=== PATIENT | female | born 1960 | race Caucasian/White ===

== ENCOUNTER → 2018-06-29 | Outpatient (CLI) | payer MEDICAID | END | disposition home or self-care (01) | LOC: RAD 10:08 | PROVIDERS: ATTEND Family Medicine | DX: M85.872 Other specified disorders of bone density and structure, left ankle and foot (principal); M85.871 Other specified disorders of bone density and structure, right ankle and foot | CPT/HCPCS: 77077 ==

== ENCOUNTER → 2019-08-21 | Outpatient (CLI) | payer MEDICAID | END | disposition home or self-care (01) | LOC: RAD 12:29 | PROVIDERS: ATTEND Internal Medicine Rheumatology | DX: M19.011 Primary osteoarthritis, right shoulder (principal); M25.811 Other specified joint disorders, right shoulder; I70.208 Unspecified atherosclerosis of native arteries of extremities, other extremity; M25.711 Osteophyte, right shoulder ==

== ENCOUNTER → 2019-10-26 | Outpatient (CLI) | payer MEDICAID | END | disposition home or self-care (01) | LOC: RAD 13:28 | PROVIDERS: ATTEND Family Medicine | DX: M19.011 Primary osteoarthritis, right shoulder (principal); G89.29 Other chronic pain ==

== ENCOUNTER 2020-07-24 08:54 | Outpatient (CLI) | payer MEDICAID ==
[2020-07-24] MEDS ORDERED: MIDAZOLAM 1 MG/ML, 5ML ONE ×2 (09:22)
[2020-07-24] MEDS ORDERED: FENTANYL PF 100 MCG/2ML ONE (09:22)
[2020-07-24] MEDS ORDERED: NALOXONE 1 MG/ML, 2ML ONE (09:22)
[2020-07-24] MEDS ORDERED: FLUMAZENIL 0.1 MG/1 ML, 5ML ONE (09:22)
[2020-07-24] MEDS ORDERED: GADOTERATE 7.5 MMOL/15 ML SYR ONE (09:56)
== END 2020-07-24 23:59 | disposition home or self-care (01) ==
LOC: RAD 08:54
PROVIDERS: ATTEND Internal Medicine
DX: C43.62 Malignant melanoma of left upper limb, including shoulder (principal); F17.210 Nicotine dependence, cigarettes, uncomplicated; Z88.5 Allergy status to narcotic agent; M06.9 Rheumatoid arthritis, unspecified; Z79.899 Other long term (current) drug therapy
CPT/HCPCS: 70553; 99156; 99157; A9575; J2250; J3010; J2310

== ENCOUNTER → 2020-11-06 | Outpatient (CLI) | payer MEDICAID ==
[~2020-11-06] MED LIST: OMNIPAQUE 350 MG/ML, 100ML BOTTLE ONE
== END | disposition home or self-care (01) ==
LOC: CFH 10:02
PROVIDERS: ATTEND Internal Medicine
DX: C43.62 Malignant melanoma of left upper limb, including shoulder (principal); K80.20 Calculus of gallbladder without cholecystitis without obstruction; K57.10 Diverticulosis of small intestine without perforation or abscess without bleeding; M51.37 Other intervertebral disc degeneration, lumbosacral region
CPT/HCPCS: 71260; 74177; Q9967

== ENCOUNTER → 2021-05-28 | Outpatient (CLI) | payer MEDICAID | END | disposition home or self-care (01) | LOC: CFH 08:57 | PROVIDERS: ATTEND Internal Medicine | DX: C43.62 Malignant melanoma of left upper limb, including shoulder (principal); K80.20 Calculus of gallbladder without cholecystitis without obstruction; M51.36 Other intervertebral disc degeneration, lumbar region; R91.1 Solitary pulmonary nodule; J98.11 Atelectasis; M43.8X6 Other specified deforming dorsopathies, lumbar region | CPT/HCPCS: 71260; 74177; Q9967 ==

== ENCOUNTER 2021-07-15 05:53 | Day surgery (SDC) | payer MEDICAID ==
[~2021-07-15] VITALS: Ht 165.1 cm; Wt 66.2 kg
[2021-07-15] MEDS ORDERED: GABA600T7 PO (06:44)
[2021-07-15] MEDS ORDERED: ADAL40PE SQ (06:44)
[2021-07-15] MEDS ORDERED: FOLI1TAB32 PO (06:44)
[2021-07-15] MEDS ORDERED: PREDNISOLONE (06:44)
[2021-07-15 07:03] VITALS: BP 137/83
[2021-07-15 07:26] LABS: INTERNATIONAL NORMALIZED RATIO 0.96 (0.93-1.1); PROTHROMBIN TIME 10.3 Seconds (9.6-11.5)
== END 2021-07-15 09:10 | disposition home or self-care (01) ==
LOC: RAD 05:53
PROVIDERS: ATTEND Internal Medicine
DX: C43.62 Malignant melanoma of left upper limb, including shoulder (principal); C78.7 Secondary malignant neoplasm of liver and intrahepatic bile duct; F17.210 Nicotine dependence, cigarettes, uncomplicated; M06.9 Rheumatoid arthritis, unspecified; F12.90 Cannabis use, unspecified, uncomplicated; Z79.01 Long term (current) use of anticoagulants; Z79.899 Other long term (current) drug therapy; Z88.5 Allergy status to narcotic agent; Z98.890 Other specified postprocedural states
CPT/HCPCS: 36415; 47000; 77012; 85610